=== PATIENT | male | born 1975 | race Caucasian/White ===

== ENCOUNTER → 2021-06-21 | Outpatient (CLI) | payer BC ==
[2021-06-21 14:30] VITALS: BP 169/109; PULSE 80; TEMP 98.1; BMI 41.1
--- NOTE | 2021-06-21 16:42 | P.HPBAR ---
Bariatric H&P - History & Physicial H&P Date: 06/21/21 History & Physicial: Visit/CC: lap band follow up Patient initial contact: Initial weight: Initial weight in pounds: Height: 6 ft Initial BMI: Last weight: Current weight: 137.438 kg Current weight in pounds: 303.00 Current BMI: 41.1 [place] body weight (based on NIH guidelines): 80.739 kg Excess body weight loss: The patient is a 46 year-old M who presents for Bariatric Assessment. Patient resents today for LAP-BAND follow-up. He wishes to convert sleeve gastrectomy. He's had chronic issues with GERD. His band is currently empty. Past Medical History Past Medical History: Diabetes Mellitus, GERD/Reflux Additional Past Medical History / Comment(s): migraines, excessive benign tremors History of Any Multi-Drug Resistant Organisms: None Reported Past Surgical History: Bariatric Surgery, Breast Surgery, Cholecystectomy, Orthopedic Surgery, Tonsillectomy Additional Past Surgical History / Comment(s): left knee arthroscopy, rt shoulder surgery, lap band, rip breast reduction Past Anesthesia/Blood Transfusion Reactions: Motion Sickness Past Psychological History: No Psychological Hx Reported Smoking Status: Former smoker Past Alcohol Use History: None Reported Past Drug Use History: None Reported - Past Family History Mother Family Medical History: No Reported History Surgical - Exam Vital Signs Temp Pulse BP 98.1 F 80 169/109 06/21/21 14:25 06/21/21 14:25 06/21/21 14:25 - General well developed, well nourished, no distress - Eyes PERRL - ENT normal pinna - Neck no masses - Respiratory normal expansion - Cardiovascular Rhythm: regular - Abdomen Abdomen: soft, non tender Bariatric Assessment & Plan Plan: Morbid obesity, BMI 41 . Patient was scheduled for EGD. We will attempt to obtain insurance authorization for converting the sleeve gastrectomy. Bariatric Checklist Checklist: Plan: Checklist: EGD: 1. Hiatal hernia: 2. H. Pylori: HgbA1c: Vitamin D: Smoking: Never smoker Primary care physician referral: Psychiatry clearance: Cardiology clearance: Sleep study: Diet journal: VTE risk score: VTE risk level: Rehab needs at discharge:
== END ==
LOC: BARWHC3 13:27
PROVIDERS: ATTEND Surgery
DX: E66.01 Morbid (severe) obesity due to excess calories (principal); E11.9 Type 2 diabetes mellitus without complications; Z98.84 Bariatric surgery status; Z87.891 Personal history of nicotine dependence; Z68.41 Body mass index [BMI] 40.0-44.9, adult
CPT/HCPCS: 99211